=== PATIENT | male | born 1940 | race Caucasian/White ===

== ENCOUNTER → 2021-03-29 | Outpatient (CLI) | payer MEDICARE, OTHER ==
[2020-12-15 07:00] VITALS: BP 103/59
[~2021-03-29] MED LIST: ASPI81TA59 PO; CRESTOR5 MG PO; EZET10TA20 PO; LISI-517 PO
--- NOTE | 2021-03-29 16:51 | KCIC ---
EXAM: Thoracic spine, 3 views. HISTORY: Pain. COMPARISON: None. FINDINGS: 3 views of the thoracic spine are obtained. There is a mild anterior wedge compression defo rmity at T8 and there is a minimal superior endplate depression at T7. These are chronic in appearanc e. There is multilevel endplate remodeling. There are few endplate Schmorl's nodes. There is evidence of prior CABG. IMPRESSION: 1. Multilevel degenerative change. 2. Mild chronic appearing compression deformity of T8 and minimal superior endplate depression at T7. Electronically signed by: Crissy Mchugh MD (03/29/2021 4:49 PM) [id number]
== END ==
LOC: KCIC 15:55
PROVIDERS: ATTEND Family Medicine
DX: M51.44 Schmorl's nodes, thoracic region (principal); M43.8X4 Other specified deforming dorsopathies, thoracic region; M54.9 Dorsalgia, unspecified; M47.814 Spondylosis without myelopathy or radiculopathy, thoracic region
CPT/HCPCS: 72072